=== PATIENT | female | born 1945 | race Caucasian/White ===

== ENCOUNTER → 2016-09-27 | Outpatient (CLI) | payer MEDICARE ==
--- NOTE | 2016-09-27 17:27 | RADIOLOGY REPORT (SQ) ---
EXAM DESCRIPTION: CHEST PA/LAT COMPLETED DATE/TIME: 09/27/2016 3:08 pm REASON FOR STUDY: TOBACCO USE COMPARISON: October 2015 EXAM PARAMETERS: NUMBER OF VIEWS: two views TECHNIQUE: Digital Frontal and Lateral radiographic views of the chest acquired. RADIATION DOSE: NA LIMITATIONS: none FINDINGS: LUNGS AND PLEURA: No opacities, masses or pneumothorax. No pleural effusion. Again there is evidence for obstructive lung disease. MEDIASTINUM AND HILAR STRUCTURES: No masses or contour abnormalities. HEART AND VASCULAR STRUCTURES: Heart normal size. No evidence for failure. Tortuous thoracic aorta is again identified. BONES: No acute findings. HARDWARE: None in the chest. OTHER: No other significant finding. IMPRESSION: No significant interval change. No acute findings. Other findings as noted above TECHNICAL DOCUMENTATION: JOB ID: [id number] [employer]- All Rights Reserved
--- NOTE | 2016-09-27 17:38 | WOMENS IMAGING REPORT ---
EXAM DESCRIPTION: BILAT SCREENING MAMMO W/CAD COMPLETED DATE/TIME: 09/27/2016 3:57 pm REASON FOR STUDY: Z12.31, ROUTINE SCREENING MAMMO Z12.31 ENCNTR SCREEN MAMMOGRAM FOR MALIGNANT NEOP LASM OF HARINI COMPARISON: None. TECHNIQUE: Standard craniocaudal and mediolateral oblique views of each breast recorded using Ammadoa l acquisition. LIMITATIONS: None. FINDINGS: No masses, calcifications or architectural distortion. No areas of suspicion. Read with the assistance of CAD. .[facility] - R2 Cenova Version 1.3 .[facility] Imaging - R2 Cenova Version 1.3 .[facility] Imaging - R2 Cenova Version 2.4 .[facility] [place] - R2 Cenova Version 2.4 .[facility] - R2 Senior Data Warehouse Developer Version 9.2 IMPRESSION: NORMAL MAMMOGRAM. BIRADS 1. BREAST DENSITY: c. The breasts are heterogeneously dense, which may obscure small masses. BIRAD: 1 NEGATIVE RECOMMENDATION: ROUTINE SCREENING COMMENT: The patient has been notified of the results by letter per SA requirements. Additional no tification policies are in place for contacting patient with suspicious or incomplete findings. Quality ID #[id number]: The [employer] recommends an annual screening mammogram for women aged 40 years or over. This facility utilizes a reminder system to ensure that all patients receive reminder letters, and/or direct phone calls for appointments. This includes reminders for routine scr eening mammograms, diagnostic mammograms, or other Breast Imaging Interventions when appropriate. Th is patient will be placed in the appropriate reminder system. The [employer] (ACR) has developed recommendations for screening MRI of the breast s in certain patient populations, to be used in conjunction with mammography. Breast MRI surveillanc e may be appropriate for women with more than 20% lifetime risk of developing breast cancer as deter mined by genetic testing, significant family history of the disease, or history of mantle radiation f or Hodgkins Disease. ACR Practice Guidelines 2008. TECHNICAL DOCUMENTATION: FINDING NUMBER: (1) ASSESSMENT: (1) JOB ID: [id number] [employer]- All Rights Reserved
== END ==
LOC: WI 14:22
PROVIDERS: ATTEND Family Medicine
DX: Z12.31 Encounter for screening mammogram for malignant neoplasm of breast (principal); Z72.0 Tobacco use
CPT/HCPCS: 71020; G0202; 77067

== ENCOUNTER → 2017-11-07 | Outpatient (CLI) | payer MEDICARE ==
[2017-11-07 20:07] LABS: ABSOLUTE LYMPHOCYTES (AUTO) 1.1 10^3/uL (0.5-4.7); ABSOLUTE MONOCYTES (AUTO) 0.8 10^3/uL (0.1-1.4); ABSOLUTE NEUT (AUTO) 9.9 10^3/uL (1.7-8.2); BASOPHILS % (AUTO) 0.3 % (0-2); EOSINOPHILS % (AUTO) 0.2 % (0-6); HEMATOCRIT 41.3 % (36.0-47.0); HEMOGLOBIN 13.8 g/dL (12.0-15.5); LYMPHOCYTES % (AUTO) 9.5 % (13-45); MEAN CORPUSCULAR HEMOGLOBIN 29.5 pg (27.0-33.4); MEAN CORPUSCULAR HGB CONC 33.6 g/dL (32.0-36.0); MEAN CORPUSCULAR VOLUME 88 fl (80-97); MONOCYTES % (AUTO) 6.6 % (3-13); PLATELET COUNT 354 10^3/uL (150-450); RED BLOOD COUNT 4.69 10^6/uL (3.72-5.28); RED CELL DISTRIBUTION WIDTH 14.3 % (11.5-14.0); SEGMENTED NEUTROPHILS % (AUTO) 83.4 % (42-78); TOTAL CELLS COUNTED % (AUTO) 100 %; WHITE BLOOD COUNT 11.9 10^3/uL (4.0-10.5)
[2017-11-07 20:29] LABS: ALANINE AMINOTRANSFERASE 20 U/L (9-52); ALBUMIN 3.8 g/dL (3.5-5.0); ALKALINE PHOSPHATASE 78 U/L (38-126); ASPARTATE AMINO TRANSFERASE 18 U/L (14-36); BILIRUBIN,DIRECT 0.4 mg/dL (0.0-0.4); BILIRUBIN,TOTAL 0.6 mg/dL (0.2-1.3); BLOOD UREA NITROGEN 41 mg/dL (7-20); CALCIUM 9.2 mg/dL (8.4-10.2); CHLORIDE 76 mmol/L (98-107); GLUCOSE 120 mg/dL (75-110); SODIUM 137.4 mmol/L (137-145); TOTAL PROTEIN 7.3 g/dL (6.3-8.2)
[2017-11-07 20:49] LABS: ANION GAP 14 (5-19)
[2017-11-07 21:04] LABS: CARBON DIOXIDE 47 mmol/L (22-30)
[2017-11-07 21:05] LABS: POTASSIUM 2.9 mmol/L (3.6-5.0)
== END ==
LOC: LAB 19:42
PROVIDERS: ATTEND Family Medicine
DX: E87.6 Hypokalemia (principal); R11.10 Vomiting, unspecified
CPT/HCPCS: 36415; 80053; 85025

== ENCOUNTER 2017-11-08 14:23 | Observation (INO) | payer MEDICARE, MEDICAID ==
[2017-11-08] MEDS ORDERED: NORMAL SALINE 1000 ML 1,000 ML IV ONE (14:52)
[2017-11-08] MEDS ORDERED: POTASSIUM CHLORIDE 10 MEQ CAPSULE.ER PO ONE (14:52)
--- NOTE | 2017-11-08 15:18 | ER Document Report ---
ED General - General Chief Complaint: Abnormal Lab Results Stated Complaint: ABNORMAL LABS Time Seen by Provider: 11/08/17 14:42 Mode of Arrival: Ambulatory Information source: Patient TRAVEL OUTSIDE OF THE [place] IN LAST 30 DAYS: No - HPI Patient complains to provider of: Nausea, vomiting, hypokalemia Onset: Last week Onset/Duration: Better Severity: None Pain Level: Denies Exacerbated by: Food Relieved by: Other - Zofran Notes: Patient presents the emergency room for hypokalemia. She reports nausea and vomiting over the last week. Yesterday she saw her primary care provider who [facility]. She received a phone call today stating that her potassium was low and to come to the emergency room for IV replacement. She states her doctor put her on Zofran which she took this morning. She has had improvement of her nausea and has not vomited since yesterday. She was able to eat and drink food today without emesis. She denies abdominal pain, chest pain , shortness of breath, fevers, dysuria and diarrhea. She denies history of hypokalemia in the past but has had intermittent episodes of nausea and vomiting previously. - Related Data Allergies/Adverse Reactions: codeine [Codeine] Allergy (Verified 11/22/15 09:51) Past Medical History - Social History Smoking Status: Current Every Day Smoker Chew tobacco use (# tins/day): No Family History: Reviewed & Not Pertinent Patient has suicidal ideation: No Patient has homicidal ideation: No - Medical History Medical History: Other - GERD, hyperlipidemia - Past Medical History Cardiac Medical History: Reports: Hx Hypertension Denies: Hx Heart Attack, Hx Pulmonary Embolism Pulmonary Medical History: Reports: Hx Bronchitis, Hx Pneumonia - 2 yrs ago Denies: Hx Asthma, Hx COPD, Hx Respiratory Failure, Hx Sleep Apnea, Hx Tuberculosis Neurological Medical History: Denies: Hx Cerebrovascular Accident, Hx Seizures Renal/ Medical History: Denies: Hx Peritoneal Dialysis Malignancy Medical History: Denies: Hx Leukemia, Hx Lung Cancer GI Medical History: Reports: Hx Ulcer - STOMACH. Denies: Hx Crohn's Disease, Hx Gastroesophageal Reflux Disease, Hx Hepatitis, Hx Hiatal Hernia, Hx Irritable Bowel, Hx Liver Failure, Hx Pancreatitis Musculoskeletal Medical History: Psychiatric Medical History: Infectious Medical History: Denies: Hx Hepatitis, Hx HIV Past Surgical History: Reports: Hx Hysterectomy. Denies: Hx Appendectomy, Hx Bowel Surgery, Hx Section, Hx Cholecystectomy, Hx Colostomy, Hx Coronary Artery Bypass Graft, Hx Gastric Bypass Surgery, Hx Herniorrhaphy, Hx Mastectomy, Hx Open Heart Surgery, Hx Pacemaker, Hx Tonsillectomy, Hx Tubal Ligation Other: Breast biopsy - Immunizations Hx Diphtheria, Pertussis, Tetanus Vaccination: Yes Hx Pneumococcal Vaccination: 03/10/13 Review of Systems - Review of Systems Notes: REVIEW OF SYSTEMS: CONSTITUTIONAL : Denies fever, chills, or sweats. Denies recent illness. EENT: Denies eye, ear, throat, or mouth pain or symptoms. Denies nasal or sinus congestion. CARDIOVASCULAR: Denies chest pain. RESPIRATORY: Denies cough, cold, or chest congestion. Denies shortness of breath, difficulty breathing, or wheezing. GASTROINTESTINAL: Denies abdominal pain. Endorses nausea and vomiting. denies diarrhea. Denies constipation. GENITOURINARY: Denies difficulty urinating, painful urination and urinary frequency. MUSCULOSKELETAL: Denies neck or back pain or joint pain. SKIN: Denies rash or skin lesions. HEMATOLOGIC : Denies easy bruising or bleeding. LYMPHATIC: Denies swollen, enlarged glands. NEUROLOGICAL: Denies altered mental status. Denies headache. Denies weakness or paralysis. Denies problems with gait or speech. Denies sensory or motor loss. PSYCHIATRIC: Denies anxiety or depression. ALL OTHER SYSTEMS REVIEWED AND NEGATIVE. Physical Exam - Vital signs Vitals: Temp Pulse BP Pulse Ox 98.2 F 83 93/52 L 96 11/08/17 14:32 11/08/17 14:32 11/08/17 14:32 11/08/17 14:32 - Notes Notes: PHYSICAL EXAMINATION: GENERAL: Well-appearing, well-nourished and in no acute distress. HEAD: Atraumatic, normocephalic. EYES: Pupils equal round and reactive to light, extraocular movements intact, conjunctiva are normal. ENT: nares patent, oropharynx clear without exudates. Dry mucous membranes. NECK: Normal range of motion, supple without lymphadenopathy LUNGS: Breath sounds clear to auscultation bilaterally and equal. No wheezes rales or rhonchi. HEART: Regular rate and rhythm without murmurs ABDOMEN: Soft, nontender, normoactive bowel sounds. No guarding, no rebound. No masses appreciated. EXTREMITIES: Normal range of motion, no pitting edema. No cyanosis. NEUROLOGICAL: No focal neurological deficits. Moves all extremities spontaneously and on command. PSYCH: Normal mood, normal affect. SKIN: Warm, Dry, normal turgor, no rashes or lesions noted. Course - Re-evaluation Re-evalutation: 11/08/17 15:17 Vitals reviewed and stable. Patient has dry mucous membranes. I reviewed her lab work from yesterday which showed hypokalemia at 2.9. Repeat potassium level was drawn today and was 2.8. Patient given IV and oral potassium replacement as well as IV hydration. Patient also has elevated troponin on lab work which is likely related to her dehydration. She does have elevated BUN of 45 and her creatinine is 1.15 which is high compared to previous. Patient does have risk factors for ACS including age, history of smoking, hypertension, and hyperlipidemia. She will be admitted to the hospital for close monitoring of her hydration status as well as repeat troponin. She was given aspirin in the emergency room. EKG showed no acute ischemia. Case discussed with admitting physician Dr. Osborn who accepted admission after second troponin had decreased. 11/08/17 19:06 Laboratory 11/08/17 11/08/17 11/08/17 14:58 14:58 14:58 WBC 8.6 RBC 4.74 Hgb 14.1 Hct 41.8 MCV 88 MCH 29.7 MCHC 33.6 RDW 14.4 H Plt Count 302 Seg Neutrophils % 82.4 H Lymphocytes % 9.1 L Monocytes % 7.8 Eosinophils % 0.4 Basophils % 0.3 Absolute Neutrophils 7.1 Absolute Lymphocytes 0.8 Absolute Monocytes 0.7 Absolute Eosinophils 0.0 Absolute Basophils 0.0 Sodium 136.2 L Potassium 2.8 L* Chloride 76 L Carbon Dioxide 45 H* Anion Gap 15 BUN 45 H Creatinine 1.15 Est GFR ( Amer) 56 L Est GFR (Non-Af Amer) 46 L Glucose 120 H Calcium 8.6 Magnesium 2.4 H Troponin I 0.050 Urine Color Urine Appearance Urine pH Ur Specific [place] Urine Protein Urine Glucose (UA) Urine Ketones Urine Blood Urine Nitrite Urine Bilirubin Urine Urobilinogen Ur Leukocyte Esterase Urine WBC (Auto) Urine RBC (Auto) U Hyaline Cast (Auto) Squamous Epi Cells Auto Urine Mucus (Auto) Urine Ascorbic Acid 11/08/17 11/08/17 18:00 18:00 WBC RBC Hgb Hct MCV MCH MCHC RDW Plt Count Seg Neutrophils % Lymphocytes % Monocytes % Eosinophils % Basophils % Absolute Neutrophils Absolute Lymphocytes Absolute Monocytes Absolute Eosinophils Absolute Basophils Sodium Potassium Chloride Carbon Dioxide Anion Gap BUN Creatinine Est GFR ( Amer) Est GFR (Non-Af Amer) Glucose Calcium Magnesium Troponin I 0.048 Urine Color YELLOW Urine Appearance CLEAR Urine pH 5.0 Ur Specific [place] 1.016 Urine Protein NEGATIVE Urine Glucose (UA) NEGATIVE Urine Ketones NEGATIVE Urine Blood NEGATIVE Urine Nitrite NEGATIVE Urine Bilirubin NEGATIVE Urine Urobilinogen 4.0 H Ur Leukocyte Esterase NEGATIVE Urine WBC (Auto) 3 Urine RBC (Auto) 1 U Hyaline Cast (Auto) 8 Squamous Epi Cells Auto <1 Urine Mucus (Auto) RARE Urine Ascorbic Acid NEGATIVE 11/08/17 19:06 - Vital Signs Vital signs: Temp Pulse Resp BP Pulse Ox 98.1 F 83 115/67 88 L 11/08/17 17:01 11/08/17 14:32 11/08/17 17:01 11/08/17 17:01 - Laboratory Result Diagrams: 11/08/17 14:58 11/08/17 14:58 Laboratory results interpreted by me: 11/08/17 11/08/17 11/08/17 14:58 14:58 18:00 RDW 14.4 H Seg Neutrophils % 82.4 H Lymphocytes % 9.1 L Sodium 136.2 L Potassium 2.8 L* Chloride 76 L Carbon Dioxide 45 H* BUN 45 H Est GFR ( Amer) 56 L Est GFR (Non-Af Amer) 46 L Glucose 120 H Magnesium 2.4 H Urine Urobilinogen 4.0 H - EKG Interpretation by Me Additional EKG results interpreted by me: 11/08/17 16:05 Normal sinus rhythm, rate 67, left axis, no ectopy, no significant change from Discharge - Discharge Clinical Impression: Hypokalemia, Nausea and vomiting, Dehydration, Elevated troponin I level Condition: Good Disposition: ADMITTED OBSERVATION Admitting Provider: Hospitalist - Dr. Osborn Unit Admitted: Telemetry Referrals: SERENE HITCHCOCK MD [Primary Care Provider] - Follow up as needed
[2017-11-08 15:30] LABS: ABSOLUTE LYMPHOCYTES (AUTO) 0.8 10^3/uL (0.5-4.7); ABSOLUTE MONOCYTES (AUTO) 0.7 10^3/uL (0.1-1.4); ABSOLUTE NEUT (AUTO) 7.1 10^3/uL (1.7-8.2); BASOPHILS % (AUTO) 0.3 % (0-2); EOSINOPHILS % (AUTO) 0.4 % (0-6); HEMATOCRIT 41.8 % (36.0-47.0); HEMOGLOBIN 14.1 g/dL (12.0-15.5); LYMPHOCYTES % (AUTO) 9.1 % (13-45); MEAN CORPUSCULAR HEMOGLOBIN 29.7 pg (27.0-33.4); MEAN CORPUSCULAR HGB CONC 33.6 g/dL (32.0-36.0); MEAN CORPUSCULAR VOLUME 88 fl (80-97); MONOCYTES % (AUTO) 7.8 % (3-13); PLATELET COUNT 302 10^3/uL (150-450); RED BLOOD COUNT 4.74 10^6/uL (3.72-5.28); RED CELL DISTRIBUTION WIDTH 14.4 % (11.5-14.0); SEGMENTED NEUTROPHILS % (AUTO) 82.4 % (42-78); TOTAL CELLS COUNTED % (AUTO) 100 %; WHITE BLOOD COUNT 8.6 10^3/uL (4.0-10.5)
[2017-11-08] MEDS: POTASSI CL 20 MEQ/50 ML RIDER 20 MEQ/50 ML RTUPB IV SCH ×3 (15:34→21:46)
[2017-11-08 15:46] LABS: BLOOD UREA NITROGEN 45 mg/dL (7-20); CALCIUM 8.6 mg/dL (8.4-10.2); CHLORIDE 76 mmol/L (98-107); GLUCOSE 120 mg/dL (75-110); SODIUM 136.2 mmol/L (137-145)
[2017-11-08 16:01] LABS: ANION GAP 15 (5-19)
[2017-11-08 16:04] LABS: CARBON DIOXIDE 45 mmol/L (22-30); POTASSIUM 2.8 mmol/L (3.6-5.0)
[2017-11-08] MEDS ORDERED: ASPIRIN 325 MG TABLET PO ONE (16:58)
--- NOTE | 2017-11-08 17:35 | EKG REPORT ---
SEVERITY:- ABNORMAL ECG - SINUS RHYTHM NONSPECIFIC ST-T CHANGES DIFFUSE : Confirmed by: Cali Burr MD 08-Nov-2017 17:33:33
[2017-11-08 18:27] LABS: APPEARANCE,URINE CLEAR; BILIRUBIN,URINE NEGATIVE (NEGATIVE); COLOR,URINE YELLOW; GLUCOSE, URINE NEGATIVE (NEGATIVE); KETONES,URINE NEGATIVE (NEGATIVE); LEUKOCYTE ESTERASE,URINE NEGATIVE (NEGATIVE); NITRITE,URINE NEGATIVE (NEGATIVE); PROTEIN,URINE NEGATIVE (NEGATIVE); URINE SPECIFIC GRAVITY 1.016
[2017-11-08] MEDS ORDERED: MAG HYDROX/AL HYDROX/SIMETH SUSP 30 ML UDCUP PO PRN (19:22)
[2017-11-08] MEDS ORDERED: NITROGLYCERIN 0.4 MG/TAB 25 TAB/BOTTLE SL PRN (19:22)
[2017-11-08] MEDS ORDERED: PROMETHAZINE HCL 25 MG TABLET PO PRN (19:22)
[2017-11-08] MEDS ORDERED: FAMOTIDINE INJ/PF 20 MG/2 ML SDV IV ONE (19:30)
[2017-11-08] MEDS ORDERED: NORMAL SALINE 1000 ML 1,000 ML IV SCH (19:30)
[2017-11-08 20:17] LABS: URINE AMPHETAMINES SCREEN NEGATIVE; URINE BARBITURATES SCREEN NEGATIVE; URINE BENZODIAZEPINES SCREEN NEGATIVE; URINE COCAINE SCREEN NEGATIVE; URINE MARIJUANA (THC) SCREEN NEGATIVE; URINE METHADONE SCREEN NEGATIVE; URINE PHENCYCLIDINE SCREEN NEGATIVE
--- NOTE | 2017-11-08 20:50 | RADIOLOGY REPORT (SQ) ---
EXAM DESCRIPTION: ABDOMEN 2 VIEWS COMPLETED DATE/TIME: 11/08/2017 8:41 pm REASON FOR STUDY: nausea vomiting COMPARISON: None. NUMBER OF VIEWS: Two views. TECHNIQUE: Supine and upright radiographic images of the abdomen acquired. LIMITATIONS: None. FINDINGS: FREE AIR: None. No abnormal gas collections. LUNG BASES: Clear. BOWEL GAS PATTERN: Nonobstructive pattern. No dilated loops or air fluid levels. Large amount of sto ol throughout the colon. CALCIFICATIONS: No suspicious calcifications. SOFT TISSUES: No gross mass or suggestion of organomegaly. HARDWARE: None in the abdomen. BONES: No acute fracture. No worrisome bone lesions. OTHER: No other significant finding. IMPRESSION: Constipation TECHNICAL DOCUMENTATION: JOB ID: [id number] [employer]- All Rights Reserved Reading location - IP/workstation name: [email or web address]
[2017-11-08] MEDS ORDERED: NA PHOS,M-B/NA PHOS,DI-BA (ADULT) 133 ML ENEMA PR ONE (21:18)
[2017-11-08] MEDS ORDERED: LACTULOSE SYRUP 20 GM/30 ML UDCUP PO ONE (21:30)
[2017-11-09 00:28] LABS: ANION GAP 10 (5-19); BLOOD UREA NITROGEN 38 mg/dL (7-20); CALCIUM 7.5 mg/dL (8.4-10.2); CARBON DIOXIDE 37 mmol/L (22-30); CHLORIDE 88 mmol/L (98-107); GLUCOSE 151 mg/dL (75-110)
[2017-11-09 00:39] LABS: CREATINE KINASE MB 0.48 ng/mL (<4.55); TROPONIN I 0.045 ng/mL
[2017-11-09] MEDS: POTASSI CL 20 MEQ/50 ML RIDER 20 MEQ/50 ML RTUPB IV SCH ×3 (01:32→08:51)
[2017-11-09] MEDS ORDERED: LACTULOSE SYRUP 20 GM/30 ML UDCUP PO ONE (01:45)
[2017-11-09] MEDS ORDERED: NORMAL SALINE 1000 ML 1,000 ML IV PRN (04:33)
--- NOTE | 2017-11-09 05:15 | PDOC H&P ---
History of Present Illness Admission Date/PCP: 11/08/17 19:25 SERENE HITCHCOCK MD Patient complains of: Nausea and vomiting History of Present Illness: EKYSHA CARTAGENA is a 71 year old female with a past medical history of lower GI bleed, anemia, chronic constipation and diverticulitis. She presents with 3 days of nausea and vomiting of gastric content, not associated with fever or diarrhea. She denies suspect meals, infectious contacts or change in medications. In the emergency room she is found to have severe metabolic alkalosis and hypokalemia she receives symptomatic management, potassium repletion and IV fluids and referred to the hospitalist for admission. Patient does not recall her last bowel movement, abdominal x-ray reveals severe constipation. Past Medical History Cardiac Medical History: Reports: Hypertension Denies: Congestive Heart Failure, Myocardial Infarction, Pulmonary Embolism Pulmonary Medical History: Reports: Bronchitis, Pneumonia - 2 yrs ago Denies: Asthma, Chronic Obstructive Pulmonary Disease (COPD), Respiratory Failure, Sleep Apnea, Tuberculosis Neurological Medical History: Denies: Seizures Renal/ Medical History: Denies: End Stage Renal Disease Malignancy Medical History: Denies: Leukemia, Lung Cancer GI Medical History: Denies: Cirrhosis, Crohn's Disease, Gastroesophageal Reflux Disease, Hepatitis, Hiatal Hernia Psychiatric Medical History: Reports: Tobacco Dependency Denies: Bipolar Disorder, Depression Hematology: Reports: Anemia - ON IRON Denies: Hemophilia, Sickle Cell Disease, Bleeding Tendencies Infectious Medical History: Denies: HIV Past Surgical History Past Surgical History: Reports: Hysterectomy Denies: Amputation, Appendectomy, Section, Cholecystectomy, Colostomy, Coronary Artery Bypass Graft, Gastric Bypass Surgery, Herniorrhaphy, Mastectomy, Pacemaker, Tonsillectomy, Tubal Ligation Social History Information Source: Patient, [facility] Records Smoking Status: Current Every Day Smoker Frequency of Alcohol Use: None Hx Recreational Drug Use: No Drugs: None Hx Prescription Drug Abuse: No - Advance Directive Resuscitation Status: Full Code Family History Family History: COPD, Hypertension Parental Family History Reviewed: Yes Children Family History Reviewed: Yes Sibling(s) Family History Reviewed.: Yes Medication/Allergy Home Medications: Tramadol HCl 50 mg PO TIDP PRN 03/24/15 Omeprazole [Prilosec] 40 mg PO BID #28 capsule. 03/26/15 Iron Polysaccharides Complex [Nu-Iron 150 Capsule] 150 mg PO DAILY #30 capsule 08/05/15 Varenicline Tartrate [Chantix 1 Mg Tablet] 1 mg PO DAILY 11/28/15 Oxycodone HCl/Acetaminophen [Percocet 5-325 mg Tablet] 1 - 2 tab PO ASDIR PRN # 15 tablet 12/16/15 Allergies/Adverse Reactions: codeine [Codeine] Allergy (Verified 11/22/15 09:51) Review of Systems Constitutional: PRESENT: as per HPI, anorexia, fatigue. ABSENT: chills, fever(s ), headache(s), weight gain, weight loss Eyes: ABSENT: visual disturbances Ears: ABSENT: hearing changes Cardiovascular: ABSENT: chest pain, dyspnea on exertion, edema, orthropnea, palpitations Respiratory: ABSENT: cough, hemoptysis Gastrointestinal: PRESENT: as per HPI, abdominal pain, constipation, nausea, vomiting. ABSENT: diarrhea, hematemesis, hematochezia Genitourinary: ABSENT: dysuria, hematuria Musculoskeletal: ABSENT: joint swelling Integumentary: ABSENT: rash, wounds Neurological: ABSENT: abnormal gait, abnormal speech, confusion, dizziness, focal weakness, syncope Psychiatric: ABSENT: anxiety, depression, homidical ideation, suicidal ideation Endocrine: ABSENT: cold intolerance, heat intolerance, polydipsia, polyuria Hematologic/Lymphatic: ABSENT: easy bleeding, easy bruising Physical Exam Vital Signs: Temp Pulse Resp BP Pulse Ox 98.6 F 63 16 124/59 L 100 11/09/17 04:00 11/09/17 04:00 11/09/17 04:00 11/09/17 04:00 11/09/17 04:00 Intake & Output 11/07/17 11/08/17 11/09/17 11:59 11:59 11:59 Intake Total 100 Balance 100 General appearance: PRESENT: cooperative, mild distress. ABSENT: disheveled, hard of hearing Head exam: PRESENT: atraumatic, normocephalic Eye exam: PRESENT: conjunctiva pink, EOMI, PERRLA. ABSENT: scleral icterus Ear exam: PRESENT: normal external ear exam Mouth exam: PRESENT: dry mucosa, tongue midline Neck exam: ABSENT: carotid bruit, JVD, lymphadenopathy, thyromegaly Respiratory exam: PRESENT: clear to auscultation ryne. ABSENT: rales, rhonchi, wheezes Cardiovascular exam: PRESENT: RRR. ABSENT: diastolic murmur, rubs, systolic murmur Pulses: PRESENT: normal dorsalis pedis pul Vascular exam: PRESENT: normal capillary refill GI/Abdominal exam: PRESENT: hypoactive bowel sounds, normal bowel sounds, soft, tenderness. ABSENT: distended, guarding, mass, organolmegaly, rebound Rectal exam: PRESENT: deferred Extremities exam: PRESENT: full ROM. ABSENT: calf tenderness, clubbing, pedal edema Neurological exam: PRESENT: alert, awake, oriented to person, oriented to place , oriented to time, oriented to situation, CN II-XII grossly intact. ABSENT: motor sensory deficit Psychiatric exam: PRESENT: appropriate affect, normal mood. ABSENT: homicidal ideation, suicidal ideation Skin exam: PRESENT: dry, intact, warm. ABSENT: cyanosis, rash Results Laboratory Results: 11/08/17 23:31 11/08/17 11/08/17 20:15 23:31 Sodium 135.0 L Potassium 3.0 L* Chloride 88 L Carbon Dioxide 37 H Anion Gap 10 BUN 38 H Creatinine 0.88 Est GFR ( Amer) > 60 Est GFR (Non-Af Amer) > 60 Glucose 151 H Calcium 7.5 L Magnesium 2.3 11/08/17 23:31 CK-MB (CK-2) 0.48 Troponin I 0.045 Impressions: Abdomen X-Ray 11/08/17 19:34 IMPRESSION: Constipation Assessment & Plan - Diagnosis (1) Hypokalemia Is this a current diagnosis for this admission?: Yes Plan: With dehydration, metabolic alkalosis secondary to nausea and vomiting secondary to severe constipation. Replete potassium, follow-up magnesium and chemistry (2) Nausea and vomiting Is this a current diagnosis for this admission?: Yes Plan: Please see #1, Fleet enema, lactulose, symptomatic management (3) Alkalosis Is this a current diagnosis for this admission?: Yes Plan: Secondary to #1, IV fluid challenge, follow-up chemistry (4) Constipation Is this a current diagnosis for this admission?: Yes Plan: Lactulose and Fleet enema, follow-up bowel regiment (5) Dehydration Is this a current diagnosis for this admission?: Yes Plan: Secondary to #1, IV fluid challenge - Time Time Spent: 50 to 70 Minutes - Inpatient Certification Medical Necessity: Need Close Monitoring Due to Risk of Patient Decompensation
[2017-11-09 06:28] LABS: ABSOLUTE EOSINOPHILS # (AUTO) 0.2 10^3/uL (0.0-0.6); ABSOLUTE LYMPHOCYTES (AUTO) 1.4 10^3/uL (0.5-4.7); ABSOLUTE MONOCYTES (AUTO) 0.9 10^3/uL (0.1-1.4); ABSOLUTE NEUT (AUTO) 5.8 10^3/uL (1.7-8.2); BASOPHILS % (AUTO) 0.2 % (0-2); CREATINE KINASE MB 0.43 ng/mL (<4.55); EOSINOPHILS % (AUTO) 1.9 % (0-6); HEMATOCRIT 39.3 % (36.0-47.0); HEMOGLOBIN 13.2 g/dL (12.0-15.5); LYMPHOCYTES % (AUTO) 17.4 % (13-45); MEAN CORPUSCULAR HEMOGLOBIN 29.5 pg (27.0-33.4); MEAN CORPUSCULAR HGB CONC 33.6 g/dL (32.0-36.0); MEAN CORPUSCULAR VOLUME 88 fl (80-97); MONOCYTES % (AUTO) 10.9 % (3-13); PLATELET COUNT 198 10^3/uL (150-450); RED BLOOD COUNT 4.47 10^6/uL (3.72-5.28); RED CELL DISTRIBUTION WIDTH 14.5 % (11.5-14.0); SEGMENTED NEUTROPHILS % (AUTO) 69.6 % (42-78); TOTAL CELLS COUNTED % (AUTO) 100 %; TROPONIN I 0.032 ng/mL; WHITE BLOOD COUNT 8.3 10^3/uL (4.0-10.5)
[2017-11-09 07:00] LABS: ANION GAP 7 (5-19); BLOOD UREA NITROGEN 34 mg/dL (7-20); CALCIUM 7.8 mg/dL (8.4-10.2); CARBON DIOXIDE 37 mmol/L (22-30); CHLORIDE 95 mmol/L (98-107); CHOLESTEROL 134.31 mg/dL (0-200); CREATINE KINASE 26 U/L (30-135); GLUCOSE 88 mg/dL (75-110); POTASSIUM 3.2 mmol/L (3.6-5.0); TRIGLYCERIDES 58 mg/dL (<150)
[2017-11-09 07:10] LABS: DIRECT LDL 72 mg/dL (<100)
[2017-11-09] MEDS ORDERED: POTASSIUM CHLORIDE 20 MEQ/15 ML UDCUP PO ONE (08:30)
[2017-11-09] MEDS ORDERED: FAMOTIDINE INJ/PF 20 MG/2 ML SDV IV SCH (10:00)
[2017-11-09] MEDS ORDERED: NA PHOS,M-B/NA PHOS,DI-BA (ADULT) 133 ML ENEMA PR SCH (10:00)
[2017-11-09] MEDS ORDERED: LACTULOSE SYRUP 20 GM/30 ML UDCUP PO SCH (10:00)
--- NOTE | 2017-11-09 11:20 | PDOC DISCHARGE SUMMARY ---
General - Admit/Disc Date/PCP Admission Date/Primary Care Provider: 11/08/17 19:25 SERENE HITCHCOCK MD Discharge Date: 11/09/17 - Discharge Diagnosis (1) Constipation Is this a current diagnosis for this admission?: Yes Summary: Resolved after stool softener and enema. (2) Dehydration Is this a current diagnosis for this admission?: Yes Summary: Resolved with IV hydration. (3) Hypokalemia Is this a current diagnosis for this admission?: Yes (4) Nausea and vomiting Is this a current diagnosis for this admission?: Yes - Additional Information Resuscitation Status: Full Code Home Medications: Tramadol HCl 50 mg PO Q8HP PRN 03/24/15 Omeprazole [Prilosec] 40 mg PO DAILY 11/09/17 History of Present Illness Patient complains of: Nausea vomiting History of Present Illness: KEYSHA CARTAGENA is a 71 year old female a past medical history of lower GI bleed, anemia, chronic constipation and diverticulitis. She presents with 3 days of nausea and vomiting of gastric content, not associated with fever or diarrhea. She denies suspect meals, infectious contacts or change in medications. In the emergency room she is found to have severe metabolic alkalosis and hypokalemia she receives symptomatic management, potassium repletion and IV fluids and referred to the hospitalist for admission. Patient does not recall her last bowel movement, abdominal x-ray reveals severe constipation. Hospital Course Hospital Course: Patient was admitted for IV hydration and treatment for constipation. X-ray did not show any obstruction however patient was found to have fecal impaction. Patient was treated with enema as well as stool softener; patient had a large BM without rectal bleeding. Nausea and vomiting has resolved. Patient tolerated diet. Patient's dehydration and hypokalemia has resolved after IV fluid and replacement. Patient has history of chronic constipation and she has been recommended to continue stool softener. Physical Exam Vital Signs: Temp Pulse Resp BP Pulse Ox 98.7 F 65 16 112/39 L 99 11/09/17 07:34 11/09/17 07:34 11/09/17 07:34 11/09/17 07:34 11/09/17 07:34 Intake & Output 11/08/17 11/09/17 11/10/17 06:59 06:59 06:59 Intake Total 100 1050 Balance 100 1050 Weight 116 lb 13.52 oz General appearance: PRESENT: no acute distress, cooperative Eye exam: PRESENT: EOMI, PERRLA Mouth exam: PRESENT: moist Neck exam: ABSENT: carotid bruit, JVD, lymphadenopathy, thyromegaly Respiratory exam: PRESENT: clear to auscultation ryne. ABSENT: rales, rhonchi, wheezes GI/Abdominal exam: PRESENT: normal bowel sounds, soft. ABSENT: distended, guarding, mass, organolmegaly, rebound, tenderness Neurological exam: PRESENT: alert, awake, oriented to person, oriented to place , oriented to time, oriented to situation, CN II-XII grossly intact. ABSENT: motor sensory deficit Results Laboratory Results: 11/09/17 05:29 11/09/17 05:29 11/08/17 11/08/17 11/09/17 20:15 23:31 05:29 WBC 8.3 RBC 4.47 Hgb 13.2 Hct 39.3 MCV 88 MCH 29.5 MCHC 33.6 RDW 14.5 H Plt Count 198 Seg Neutrophils % 69.6 Lymphocytes % 17.4 Monocytes % 10.9 Eosinophils % 1.9 Basophils % 0.2 Absolute Neutrophils 5.8 Absolute Lymphocytes 1.4 Absolute Monocytes 0.9 Absolute Eosinophils 0.2 Absolute Basophils 0.0 Sodium 135.0 L Potassium 3.0 L* Chloride 88 L Carbon Dioxide 37 H Anion Gap 10 BUN 38 H Creatinine 0.88 Est GFR ( Amer) > 60 Est GFR (Non-Af Amer) > 60 Glucose 151 H Calcium 7.5 L Magnesium 2.3 Triglycerides Cholesterol LDL Cholesterol Direct VLDL Cholesterol HDL Cholesterol 11/09/17 05:29 WBC RBC Hgb Hct MCV MCH MCHC RDW Plt Count Seg Neutrophils % Lymphocytes % Monocytes % Eosinophils % Basophils % Absolute Neutrophils Absolute Lymphocytes Absolute Monocytes Absolute Eosinophils Absolute Basophils Sodium 139.0 Potassium 3.2 L Chloride 95 L Carbon Dioxide 37 H Anion Gap 7 BUN 34 H Creatinine 0.83 Est GFR ( Amer) > 60 Est GFR (Non-Af Amer) > 60 Glucose 88 Calcium 7.8 L Magnesium Triglycerides 58 Cholesterol 134.31 LDL Cholesterol Direct 72 VLDL Cholesterol 12.0 HDL Cholesterol 38 L 11/08/17 11/09/17 11/09/17 23:31 05:29 05:29 Creatine Kinase 26 L CK-MB (CK-2) 0.48 0.43 Troponin I 0.045 0.032 Impressions: Abdomen X-Ray 11/08/17 19:34 IMPRESSION: Constipation Qualifiers - * PATIENT BEING DISCHARGED WITH ANY OF THE FOLLOWING DIAGNOSIS: No
[2017-11-09 12:02] LABS: CREATINE KINASE MB 0.81 ng/mL (<4.55); TROPONIN I 0.04 ng/mL
[2017-11-09 16:10] VITALS: BP 126/64
== END 2017-11-09 17:11 | disposition home or self-care (01) ==
LOC: ER 14:23 → EH 19:25 → 5 21:31
PROVIDERS: ADMIT Internal Medicine; ATTEND Internal Medicine
DX: K56.41 Fecal impaction (principal); E86.0 Dehydration; E87.6 Hypokalemia; R11.2 Nausea with vomiting, unspecified; E87.3 Alkalosis; F17.200 Nicotine dependence, unspecified, uncomplicated; R63.0 Anorexia; R53.83 Other fatigue; R79.89 Other specified abnormal findings of blood chemistry; Z87.19 Personal history of other diseases of the digestive system; Z90.710 Acquired absence of both cervix and uterus; Z79.899 Other long term (current) drug therapy
CPT/HCPCS: 93005; 99285; 96365; 96366; 36415 ×2; 82553 ×2; 82550; 83735; 85025 ×2; 80048 ×2; 81001; 84484 ×2; 80307; 80061; 74019; 93010; G0378 ×3; A9270 ×5; J3480 ×2; J7030 ×2; S0028

== ENCOUNTER 2017-11-28 16:06 | Emergency (ER) | payer MEDICARE, MEDICAID ==
[2017-11-28] MEDS ORDERED: NORMAL SALINE 500 ML IV ONE (17:07)
--- NOTE | 2017-11-28 17:55 | RADIOLOGY REPORT (SQ) ---
EXAM DESCRIPTION: CHEST 2 VIEWS COMPLETED DATE/TIME: 11/28/2017 5:46 pm REASON FOR STUDY: FALL PAIN COMPARISON: 09/27/2016 NUMBER OF VIEWS: Two view. TECHNIQUE: Frontal and lateral radiographic views of the chest acquired. LIMITATIONS: None. FINDINGS: LUNGS AND PLEURA: No opacities, masses or pneumothorax. No pleural effusion. Attenuated bl ood vessels and flattened kierra-diaphragms. MEDIASTINUM AND HILAR STRUCTURES: Stable. HEART AND VASCULAR STRUCTURES: Heart normal in size and contour. No evidence for failure. BONES: No acute findings. HARDWARE: None in the chest. OTHER: No other significant finding. IMPRESSION: COPD. NO ACUTE RADIOGRAPHIC FINDING IN THE CHEST. TECHNICAL DOCUMENTATION: JOB ID: [id number] ED01- All Rights Reserved Reading location - IP/workstation name: [email or web address]
--- NOTE | 2017-11-28 17:56 | RADIOLOGY REPORT (SQ) ---
EXAM DESCRIPTION: SHOULDER BILAT 2 OR MORE VIEWS COMPLETED DATE/TIME: 11/28/2017 5:46 pm REASON FOR STUDY: FALL PAIN COMPARISON: None. NUMBER OF VIEWS: Three views. TECHNIQUE: Internal rotation, external rotation, and Y view images acquired of the right and left sh oulder. LIMITATIONS: None. FINDINGS: MINERALIZATION: Osteopenia. BONES: No acute fracture or dislocation. No worrisome bone lesions. JOINTS: No dislocation. VISUALIZED LUNGS AND RIBS: No pneumothorax. No rib fracture. SOFT TISSUES: No radiopaque foreign body. OTHER: No other significant finding. IMPRESSION: NO RADIOGRAPHIC EVIDENCE OF ACUTE INJURY. TECHNICAL DOCUMENTATION: JOB ID: [id number] [employer]- All Rights Reserved Reading location - IP/workstation name: [email or web address]
[2017-11-28 18:15] LABS: ABSOLUTE LYMPHOCYTES (AUTO) 0.4 10^3/uL (0.5-4.7); ABSOLUTE MONOCYTES (AUTO) 0.6 10^3/uL (0.1-1.4); ABSOLUTE NEUT (AUTO) 6.5 10^3/uL (1.7-8.2); BASOPHILS % (AUTO) 0.4 % (0-2); EOSINOPHILS % (AUTO) 0.1 % (0-6); HEMOGLOBIN 14.2 g/dL (12.0-15.5); LYMPHOCYTES % (AUTO) 5.6 % (13-45); MEAN CORPUSCULAR HEMOGLOBIN 29.7 pg (27.0-33.4); MEAN CORPUSCULAR HGB CONC 33.7 g/dL (32.0-36.0); MEAN CORPUSCULAR VOLUME 88 fl (80-97); MONOCYTES % (AUTO) 8.4 % (3-13); PLATELET COUNT 189 10^3/uL (150-450); RED BLOOD COUNT 4.77 10^6/uL (3.72-5.28); RED CELL DISTRIBUTION WIDTH 16.2 % (11.5-14.0); SEGMENTED NEUTROPHILS % (AUTO) 85.5 % (42-78); TOTAL CELLS COUNTED % (AUTO) 100 %; WHITE BLOOD COUNT 7.6 10^3/uL (4.0-10.5)
[2017-11-28 18:37] LABS: ALANINE AMINOTRANSFERASE 19 U/L (9-52); ALBUMIN 3.8 g/dL (3.5-5.0); ALKALINE PHOSPHATASE 74 U/L (38-126); ANION GAP 7 (5-19); ASPARTATE AMINO TRANSFERASE 33 U/L (14-36); BILIRUBIN,DIRECT 0.6 mg/dL (0.0-0.4); BLOOD UREA NITROGEN 14 mg/dL (7-20); CALCIUM 9.1 mg/dL (8.4-10.2); CARBON DIOXIDE 31 mmol/L (22-30); CHLORIDE 99 mmol/L (98-107); GLUCOSE 116 mg/dL (75-110); POTASSIUM 3.7 mmol/L (3.6-5.0); SODIUM 136.9 mmol/L (137-145); TOTAL PROTEIN 7.5 g/dL (6.3-8.2)
[2017-11-28] MEDS ORDERED: LIDOCAINE 5% (700 MG) TRANSDERMAL ADH..PATCH TP ONE (18:54)
[2017-11-28] MEDS ORDERED: ACETAMINOPHEN 325 MG TABLET PO ONE (18:54)
--- NOTE | 2017-11-28 19:21 | ER Document Report ---
ED General - General Chief Complaint: Fall Stated Complaint: WEAKNESS Time Seen by Provider: 11/28/17 17:06 TRAVEL OUTSIDE OF THE [place] IN LAST 30 DAYS: No - HPI Patient complains to provider of: Weakness Notes: Patient coming in for evaluation of weakness. Patient states last night she felt the couch. Patient otherwise has no other complaints other than bilateral shoulder pain. Denies any urinary symptoms denies any fevers chills nausea vomiting diarrhea. Just prior to discharge family members do show up give more information to the HPI states patient has been losing weight and is currently being monitored by her PCP Dr. Hitchcock. Otherwise family does state patient has fallen off the couch approximately 3 times in the last short period of time - Related Data Allergies/Adverse Reactions: codeine [Codeine] Allergy (Verified 11/28/17 16:07) Past Medical History - Social History Smoking Status: Current Every Day Smoker Family History: COPD, Hypertension Patient has suicidal ideation: No Patient has homicidal ideation: No - Past Medical History Cardiac Medical History: Reports: Hx Hypertension Denies: Hx Congestive Heart Failure, Hx Heart Attack, Hx Pulmonary Embolism Pulmonary Medical History: Reports: Hx Bronchitis, Hx Pneumonia - 2 yrs ago Denies: Hx Asthma, Hx COPD, Hx Respiratory Failure, Hx Sleep Apnea, Hx Tuberculosis Neurological Medical History: Denies: Hx Cerebrovascular Accident, Hx Seizures Renal/ Medical History: Denies: Hx End Stage Renal Disease, Hx Kidney Stones, Hx Peritoneal Dialysis Malignancy Medical History: Denies: Hx Leukemia, Hx Lung Cancer GI Medical History: Reports: Hx Ulcer - STOMACH. Denies: Hx Cirrhosis, Hx Crohn 's Disease, Hx Gastroesophageal Reflux Disease, Hx Hepatitis, Hx Hiatal Hernia, Hx Irritable Bowel, Hx Liver Failure, Hx Pancreatitis Musculoskeletal Medical History: Denies Hx Multiple Sclerosis Psychiatric Medical History: Denies: Hx Bipolar Disorder, Hx Depression, Hx Schizophrenia Infectious Medical History: Denies: Hx Hepatitis, Hx HIV Past Surgical History: Reports: Hx Hysterectomy. Denies: Hx Appendectomy, Hx Bowel Surgery, Hx Section, Hx Cholecystectomy, Hx Colostomy, Hx Coronary Artery Bypass Graft, Hx Gastric Bypass Surgery, Hx Herniorrhaphy, Hx Mastectomy, Hx Open Heart Surgery, Hx Pacemaker, Hx Tonsillectomy, Hx Tubal Ligation - Immunizations Hx Diphtheria, Pertussis, Tetanus Vaccination: Yes Hx Pneumococcal Vaccination: 03/10/13 Review of Systems - Review of Systems Constitutional: Weakness EENT: No symptoms reported Cardiovascular: No symptoms reported Respiratory: No symptoms reported Gastrointestinal: No symptoms reported Genitourinary: No symptoms reported Female Genitourinary: No symptoms reported Musculoskeletal: No symptoms reported Skin: No symptoms reported Hematologic/Lymphatic: No symptoms reported Neurological/Psychological: No symptoms reported -: Yes All other systems reviewed and negative Physical Exam - Vital signs Vitals: Temp Pulse Resp BP Pulse Ox 98.6 F 94 14 169/82 H 95 11/28/17 16:13 11/28/17 16:13 11/28/17 16:13 11/28/17 16:13 11/28/17 16:13 Interpretation: Normal - General General appearance: Appears well, Alert - HEENT Head: Normocephalic, Atraumatic Eyes: Normal Pupils: PERRL - Respiratory Respiratory status: No respiratory distress Chest status: Nontender Breath sounds: Normal Chest palpation: Normal - Cardiovascular Rhythm: Regular Heart sounds: Normal auscultation Murmur: No - Abdominal Inspection: Normal Distension: No distension Bowel sounds: Normal Tenderness: Nontender Organomegaly: No organomegaly - Back Back: Normal, Nontender - Extremities General upper extremity: Normal inspection, Nontender, Normal color, Normal ROM , Normal temperature General lower extremity: Normal inspection, Nontender, Normal color, Normal ROM , Normal temperature, Normal weight bearing. No: Ema's sign - Neurological Neuro grossly intact: Yes Cognition: Normal Orientation: AAOx4 Morena Coma Scale Eye Opening: Spontaneous [place] Coma Scale Verbal: Oriented [place] Coma Scale Motor: Obeys Commands [place] Coma Scale Total: 15 Speech: Normal Motor strength normal: LUE, RUE, LLE, RLE Sensory: Normal - Psychological Associated symptoms: Normal affect, Normal mood - Skin Skin Temperature: Warm Skin Moisture: Dry Skin Color: Normal Course - Re-evaluation Re-evalutation: 11/28/17 22:44 No critical pathology seen for the patient's weakness. Patient will be discharged home follow-up PCP - Vital Signs Vital signs: Temp Pulse Resp BP Pulse Ox 98.9 F 87 18 162/68 H 96 11/28/17 19:57 11/28/17 19:57 11/28/17 19:57 11/28/17 19:57 11/28/17 19:57 - Laboratory Result Diagrams: 11/28/17 18:00 11/28/17 18:00 Laboratory results interpreted by me: 11/28/17 11/28/17 18:00 18:00 RDW 16.2 H Seg Neutrophils % 85.5 H Lymphocytes % 5.6 L Absolute Lymphocytes 0.4 L Sodium 136.9 L Carbon Dioxide 31 H Creatinine 0.51 L Glucose 116 H Direct Bilirubin 0.6 H Discharge - Discharge Clinical Impression: Weakness Condition: Good Disposition: HOME, SELF-CARE Instructions: Weakness (OM) Additional Instructions: Your evaluation today does not show any signs of infection electrolyte abnormalities. Chest x-ray your shoulders x-rays not showing signs of fracture. Would highly recommend she follow-up with your primary care physician in 1 week. Please continue to drink plenty of fluids and eat a healthy diet. Referrals: SERENE HITCHCOCK MD [Primary Care Provider] - Follow up as needed
[2017-11-28 22:56] VITALS: BP 162/68
--- NOTE | 2017-11-29 12:42 | EKG REPORT ---
SEVERITY:- ABNORMAL ECG - SINUS RHYTHM PROBABLE LEFT ATRIAL ABNORMALITY LEFT VENTRICULAR HYPERTROPHY ST DEPRESSION, CONSIDER ISCHEMIA, LAT LEADS : Confirmed by: Pia Mclaughlin MD 29-Nov-2017 12:41:26
== END 2017-11-28 20:00 | disposition home or self-care (01) ==
LOC: ER 16:06
DX: R53.83 Other fatigue (principal); M25.512 Pain in left shoulder; M25.511 Pain in right shoulder; W07.XXXA Fall from chair, initial encounter; I10 Essential (primary) hypertension; Z88.6 Allergy status to analgesic agent; Z90.710 Acquired absence of both cervix and uterus
CPT/HCPCS: 93005; 99285; 96360; 36415; 85025; 80053; 84484; 71046; 73030; 93010; A9270